=== PATIENT | female | born 1990 | race Caucasian/White ===

== ENCOUNTER 2024-03-13 09:40 | Emergency (ER) | payer MEDICAID ==
[2024-03-13 10:35] LABS: CORONAVIRUS COVID-19 NAA NEGATIVE (NEGATIVE); INFLUENZA A NAA NEGATIVE (NEGATIVE); INFLUENZA B NAA NEGATIVE (NEGATIVE); RESPIRATORY SYNCYTIAL VIR NAA NEGATIVE (NEGATIVE)
[2024-03-13] MEDS: GI Cocktail Oral Solution 30 ML PO ONE (10:54)
== END 2024-03-13 10:56 | disposition home or self-care (01) ==
LOC: DL.ED 09:40
DX: J02.0 Streptococcal pharyngitis (principal)
CPT/HCPCS: 0241U; 87081; 87430; 99283; A9270